=== PATIENT | male | born 1940 | race Caucasian/White ===

== ENCOUNTER 2017-12-23 12:03 | Emergency (ER) | payer MEDICARE, BC, SELFPAY ==
[2017-12-23 12:50] VITALS: BP 130/74; PULSE 76; RESP 18; TEMP 37; O2SAT 96; BMI 27.8
--- NOTE | 2017-12-23 12:56 | HMH.EDUTC ---
[facility] [place] Disposition Clinical Impression: Flu-like symptoms Disposition: Home, Self-Care Condition on Discharge: Good Instructions: Influenza, Sore Throat Additional Instructions: ? Start Tamiflu today if you are going to take it. Discussed risk and possible benefits. ? Lots of rest ? Increase Fluids water, Gatorade, powerade, pedialyte,if infant/toddler/child ? Alternate Tylenol and / or ibuprofen as discussed for fever, aches, chills x 24 hours without medication for symptoms ? Follow up IMMEDIATELY for new or worsening Symptoms OR no noticeable improvement over the next 48-72 hours, 911 for difficulty or breathing ? You or your child area contagious until no fever, aches, chills for 24 hours with medication for symptoms Prescriptions: Oseltamivir Phosphate [Tamiflu 75mg Capsule] 75 mg PO BID #10 cap Referrals: Aden Basilio MD [Primary Care Provider] - Time of Disposition: 13:00 Medical Decision Making - Medical Records Medical records reviewed: Yes: I reviewed the patient's medical records. Vital Signs: 12/23/17 12:50 Temperature 98.6 F Temperature Source Temporal Artery Scan Pulse Rate [Right] 76 Respiratory Rate 18 Blood Pressure [Right Arm] 130/74 Blood Pressure Mean [Right Arm] 92 Blood Pressure Source [Right Arm] Automatic Cuff Blood Pressure Position [Right Arm] Sitting 02 Sat by Pulse Oximetry 96 Oxygen Delivery Method Room Air - Ian Inquiry Pt receiving controlled substance: No Ian was queried for this patient: No - Reevaluation(s) Time: 12:58 Reevaluation #1: Patient having flu like symptoms, Patient flu test negative at this time however just tested positive for the flu Due to paitent age and current symptoms patient was placed on Tamiflu and treated for influenza [facility] HPI - General Stated complaint: body aches possible flu Mode of Arrival: Ambulatory Source of Information: Patient Limitations: No Limitations Description of Symptoms (Recalled from Triage Doc. by RN): STATES HAS FLU HEENT Symptoms (Recalled from RN notes): Yes Resp Symptoms (Recalled from RN notes): No Skin Symptoms (Recalled from RN notes): No MS Symptoms (Recalled from RN notes): No Functional Status (Recalled from RN notes): N - History of Present Illness Provider Complaint: Patient state that he thinks he has the flu States that yesterday he began to feel bad having fever and chills State that even his hair feels sore State that he has been having body aches, sore throat and nasal drainage States that his is sick too so they came in to get checked - Related Data Previous Rx's Medication Instructions Recorded Oseltamivir Phosphate [Tamiflu 75 mg PO BID #10 cap 12/23/17 75mg Capsule] Allergies Allergy/AdvReac Type Severity Reaction Status Date / Time morphine Allergy Verified 12/23/17 12:54 - Worker's Comp Is this a Worker's Comp case?: No H History I have reviewed the patient's past medical history: Yes Medical History: Reports:: Diabetes Mellitus Type 2 - *Social History Alcohol Intake: never - Psychiatric History Expresses thoughts of harming self/others: None Suicide Plan Description: No Plan ROS Obtained: Yes All systems reviewed & no additional complaints - Constitutional Constitutional: Reports body ache, Reports chills, Reports fever(s) - ENT Ears, Nose, Mouth, and Throat: Reports nasal congestion, Reports nasal discharge, Reports sore throat - Cardiovascular Cardiovascular: Denies chest pain - Respiratory Respiratory: Yes cough, No dyspnea, No wheezing Physical Exam - General General appearance: alert, in no apparent distress - Expanded ENT Exam Comment: Throat red, irritated no exudate - Respiratory Respiratory exam: Present: normal lung sounds bilaterally. Absent: respiratory distress - Cardiovascular Cardiovascular exam: Present: regular rate, normal rhythm. Absent: JVD - Abdominal Exam Abdominal exam: Present: sof
--- NOTE | 2017-12-23 12:59 | ED_ITS ---
[facility] [place] [place] Disposition Clinical Impression: Flu-like symptoms Disposition: Home, Self-Care Condition on Discharge: Good Instructions: Influenza, Sore Throat Additional Instructions: ? Start Tamiflu today if you are going to take it. Discussed risk and possible benefits. ? Lots of rest ? Increase Fluids water, Gatorade, powerade, pedialyte,if infant/toddler/child ? Alternate Tylenol and / or ibuprofen as discussed for fever, aches, chills x 24 hours without medication for symptoms ? Follow up IMMEDIATELY for new or worsening Symptoms OR no noticeable improvement over the next 48-72 hours, 911 for difficulty or breathing ? You or your child area contagious until no fever, aches, chills for 24 hours with medication for symptoms Prescriptions: Oseltamivir Phosphate [Tamiflu 75mg Capsule] 75 mg PO BID #10 cap Referrals: Aden Basilio MD [Primary Care Provider] - Time of Disposition: 13:00 Medical Decision Making - Medical Records Medical records reviewed: Yes: I reviewed the patient's medical records. Vital Signs: 12/23/17 12:50 Temperature 98.6 F Temperature Source Temporal Artery Scan Pulse Rate [Right] 76 Respiratory Rate 18 Blood Pressure [Right Arm] 130/74 Blood Pressure Mean [Right Arm] 92 Blood Pressure Source [Right Arm] Automatic Cuff Blood Pressure Position [Right Arm] Sitting 02 Sat by Pulse Oximetry 96 Oxygen Delivery Method Room Air - Ian Inquiry Pt receiving controlled substance: No Ian was queried for this patient: No - Reevaluation(s) Time: 12:58 Reevaluation #1: Patient having flu like symptoms, Patient flu test negative at this time however just tested positive for the flu Due to paitent age and current symptoms patient was placed on Tamiflu and treated for influenza [facility] [place] [place] HPI - General Stated complaint: body aches possible flu Mode of Arrival: Ambulatory Source of Information: Patient Limitations: No Limitations Description of Symptoms (Recalled from Triage Doc. by RN): STATES HAS FLU HEENT Symptoms (Recalled from RN notes): Yes Resp Symptoms (Recalled from RN notes): No Skin Symptoms (Recalled from RN notes): No MS Symptoms (Recalled from RN notes): No Functional Status (Recalled from RN notes): N - History of Present Illness Provider Complaint: Patient state that he thinks he has the flu States that yesterday he began to feel bad having fever and chills State that even his hair feels sore State that he has been having body aches, sore throat and nasal drainage States that his is sick too so they came in to get checked - Related Data Previous Rx's Medication Instructions Recorded Oseltamivir Phosphate [Tamiflu 75 mg PO BID #10 cap 12/23/17 75mg Capsule] Allergies Allergy/AdvReac Type Severity Reaction Status Date / Time morphine Allergy Verified 12/23/17 12:54 - Worker's Comp Is this a Worker's Comp case?: No [facility] History I have reviewed the patient's past medical history: Yes Medical History: Reports:: Diabetes Mellitus Type 2 - *Social History Alcohol Intake: never - Psychiatric History Expresses thoughts of harming self/others: None Suicide Plan Description: No Plan ROS Obtained: Yes All systems reviewed & no additional complaints - Constitutional Constitutional: Reports body ache, Reports chills, Reports fever(s) - ENT Ears,
[2017-12-23 13:11] LABS: UTC Influenza A Antigen Negative (Negative); UTC Influenza B Antigen Negative (Negative)
[2017-12-23 13:13] VITALS: BP 128/87; PULSE 88; RESP 18; TEMP 36.6
== END 2017-12-23 13:17 | disposition home or self-care (01) ==
PROVIDERS: Emergency Provider Nurse Practitioner; PCP Family Medicine
DX: J10.1 Influenza due to other identified influenza virus with other respiratory manifestations (principal)
CPT/HCPCS: 87804; 99202

== ENCOUNTER → 2018-05-28 14:37 | Outpatient (CLI) | payer MEDICARE, BC, SELFPAY ==
[2018-05-28 17:37] LABS: Blood Urea Nitrogen 16 mg/dL (7-18); Estimated Glomerular Filt Rate 73 ml/min (>60); GFR (African American) 88 ML/MIN (>60)
== END ==
PROVIDERS: PCP Family Medicine; Visit Provider Surgery
DX: Z01.818 Encounter for other preprocedural examination (principal)
CPT/HCPCS: 36415; 82565; 84520

== ENCOUNTER → 2018-06-03 09:08 | Outpatient (CLI) | payer MEDICARE, BC, SELFPAY ==
--- NOTE | 2018-06-03 09:11 | CT_ITS ---
CT abdomen pelvis w con INDICATION: History of major retroperitoneal bleed with drainage at [facility] Abdominal pain. Past history of pancreatitis left flank pain currently ITS.REASON: Left flank pain and swelling . Evaluate for hernia ORDERING PHYSICIAN: Mikhail Hall MD PATIENT AGE: 77 years COMPARISON: 06/18/2014 PROCEDURE: Oral Contrast: Redicat IV Contrast: 35 cc Isovue-370 utilized TECHNIQUE: Axial images are obtained following IV contrast and oral contrast. Thickened Axial, sagittal and coronal reformatted images are performed on CT workstation for review . All CT scans at the facility use one or more dose reduction, viz: automated exposure control; ma/kV adjustment per patient size (including targeted exams where dose is matched to indication; i.e. head); or iterative reconstruction technique. FINDINGS: Lung bases. Mild Cardio megaly Prominent coronary artery calcification. Aortic valve replacement. Sternotomy. Abdomen/pelvis. Liver. No focal lesions. No biliary ductal dilatation. Gallbladder surgically removed. Pancreas unremarkable. No mass. No ductal dilatation. Spleen satisfactory normal size. Adrenals unremarkable. Kidneys. No urinary tract calculi nor obstruction. Normal enhancement. Mild stranding about both kidneys most likely reflecting chronic changes. The ureters are generous but not significant dilated.. No calculi along the course of either ureter Pelvis. Diffuse urinary bladder wall thickening. Warrants correlation urinalysis. Current appearance Suspect for cystitis Moderate size prostate No free fluid in pelvis. GI TRACT Colonic diverticulosis. Most extensive diverticulosis seen at sigmoid colon. Note a thickened diverticulum at the distal sigmoid colon. This Seen on axial slice 107, sagittal 43. This could reflect a focus of diverticulitis. Clinical correlation required as There is little if any stranding however about this area to further raise concern ( regarding acute inflammation). This is fairly low at the pelvis... There is wall thickening throughout the sigmoid colon but this likely reflects chronic diverticular changes and muscular hypertrophy. Difficult to totally exclude any associated colitis. Small bowel normal caliber and unremarkable Stomach: question slight suggestion slightly thickened wall the distal antrum prepyloric.q axial slice 44-41. Aorta. Diffuse at this site calcification. This includes calcification origin of renal arteries and significant callus indication origin of SMA. However we continue see normal flow into the SMA and celiac artery. Also normal flow into SOPHIE Osseous. Multilevel degenerative changes.. Previous laminectomy and posterior fusion L 4/5 L3/4 with: donor other site likely from right iliac bone. Prominent stranding is seen posterior to the left psoas muscle. Sagittal view shows a long thin wispy area measuring over over 12 cm in seen diffusely posterior to the left psoas muscle.History from dr. Hall states that the patient has had a very large retroperitoneal hemorrhage that was drained at in the past. There are other minimal densities/findings in this region which are likely related to this old event.. 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 Infection in the past There reportedly are no new symptoms at the posterior left back/flank region per Dr. Hall. Actually the clinical concern regarding was asymmetricBulging of the abdominal wall to the left anterior iliac bone with this I would note there is some thinning and what appears to be a stress area of the abdominal the region where a a (spigelian hernia can developed between the anterolateral abdominal wall muscle groups However we do not see a matt hernia nor bulging of fat onl
== END ==
PROVIDERS: PCP Family Medicine; Visit Provider Surgery
DX: R10.9 Unspecified abdominal pain (principal)
CPT/HCPCS: 74177; Q9967

== ENCOUNTER → 2019-01-10 08:16 | Outpatient (POV) | payer MEDICARE, BC, SELFPAY | PROVIDERS: Visit Provider Nurse Practitioner Acute Care | DX: Z00.00 Encounter for general adult medical examination without abnormal findings (principal) ==

== ENCOUNTER → 2019-04-22 09:17 | Outpatient (CLI) | payer MEDICARE, SELFPAY ==
--- NOTE | 2019-04-22 09:53 | XR_ITS ---
XR KUB HISTORY: ITS.REASON: LLQ ABD PAIN ORDERING PHYSICIAN: Aden Basilio MD PATIENT AGE: 78 years COMPARISON: None FINDINGS: There is a nonspecific nonobstructive bowel gas pattern with gas-filled loops of small bowel which do not appear distended with a mild amount of retained colonic feces. There is been prior bony fusion at L3-L4 and L5. Prior CABG with multiple epicardial wires. IMPRESSION: Nonspecific bowel gas pattern, no acute finding
[2019-04-22 10:37] LABS: Basophils # 0.1 K/mm3 (0-0.2); Basophils % 0.8 % (0.1-2.0); Eosinophils # 0.2 K/mm3 (0.0-0.4); Eosinophils % 2.9 % (0.1-12.0); Lymphocytes % 29.5 % (10-50); Mean Corpuscular HGB Conc 32.5 g/dL (31.8-35.4); Mean Corpuscular Hemoglobin 30.8 pg (27.0-31.2); Mean Platelet Volume 7.9 fl (7.4-10.4); Monocytes # 0.6 K/mm3 (0.1-1.0); Monocytes % 8.3 % (1.7-9.3); Neutrophils # 3.9 K/mm3 (1.8-7.8); Neutrophils % 58.5 % (37.0-80.0); Platelet Count 229 K/mm3 (142-424); Red Blood Count 3.89 M/mm3 (4.60-6.20); Red Cell Distribution Width 12.8 % (11.5-17.5); White Blood Count 6.7 K/mm3 (4.8-10.8)
[2019-04-22 10:53] LABS: Creatinine,Urine Random 110 mg/dL (20-320)
[2019-04-22 11:28] LABS: Alanine Aminotransferase 47 U/L (12-78); Albumin Level 4.1 gm/dL (3.4-5.0); Albumin/Globulin Ratio 1.4 (1.1-1.8); Alkaline Phosphatase 57 U/L (46-116); Anion Gap 12.5 mEq/L (5-15); Aspartate Amino Transferase 34 U/L (15-37); Bilirubin,Total 1.1 mg/dL (0.2-1.0); Blood Urea Nitrogen 16 mg/dL (7-18); Calcium 8.9 mg/dL (8.5-10.1); Carbon Dioxide 28 mmol/L (21.0-32.0); Chloride 102 mmol/L (98-107); Chol/HDL Ratio 2.7 (1-3.5); Cholesterol 103 mg/dL (140-200); Creatinine,Serum 0.96 mg/dL (0.70-1.30); Estimated Glomerular Filt Rate 76 ml/min (>60); GFR (African American) 92 ML/MIN (>60); Globulin 2.9 gm/dl (1.3-3.2); Glucose 203 mg/dL (74-106); HDL Cholesterol 38 mg/dL (27-67); LDL Cholesterol 30 mg/dL (0-130); Potassium 4.5 mmoL/L (3.5-5.1); Sodium 138 mmol/L (136-145); Thyroid Stimulating Hormone 4.62 uIU/ml (0.358-3.740); Triglycerides 176 mg/dL (30-200); VLDL Cholesterol 35 mg/dL (0-40)
[2019-04-22 13:20] LABS: Hemoglobin A1C 8.3 % (0.0-7.0)
== END ==
PROVIDERS: PCP Family Medicine; Visit Provider Family Medicine
DX: E11.9 Type 2 diabetes mellitus without complications (principal); E78.00 Pure hypercholesterolemia, unspecified; R10.32 Left lower quadrant pain; Z86.2 Personal history of diseases of the blood and blood-forming organs and certain disorders involving the immune mechanism; Z79.84 Long term (current) use of oral hypoglycemic drugs
CPT/HCPCS: 36415; 74018; 80053; 80061; 82043; 82570; 83036; 84443; 85025

== ENCOUNTER → 2020-11-12 11:04 | Outpatient (POV) | payer MEDICARE, SELFPAY | PROVIDERS: Visit Provider Nurse Practitioner Family | DX: Z00.00 Encounter for general adult medical examination without abnormal findings (principal) ==

== ENCOUNTER → 2021-05-20 09:01 | Outpatient (POV) | payer MEDICARE, SELFPAY | PROVIDERS: Visit Provider Nurse Practitioner Family | DX: Z00.00 Encounter for general adult medical examination without abnormal findings (principal) ==

== ENCOUNTER 2022-02-20 22:26 | Emergency (ER) | payer MEDICARE, SELFPAY ==
[2022-02-20 22:28] VITALS: BP 154/78; PULSE 103; RESP 18; TEMP 37.1; O2SAT 95; BMI 27.0
[2022-02-20 23:32] LABS: Basophils # 0.1 K/mm3 (0-0.2); Basophils % 0.7 % (0.1-2.0); Eosinophils # 0.1 K/mm3 (0.0-0.4); Eosinophils % 0.6 % (0.1-12.0); Hematocrit 40.3 % (42.0-52.0); Hemoglobin 13.3 g/dL (14.1-18.0); Lymphocytes # 0.8 K/mm3 (0.7-4.5); Mean Corpuscular HGB Conc 32.9 g/dL (31.8-35.4); Mean Corpuscular Hemoglobin 33.1 pg (27.0-31.2); Mean Corpuscular Volume 100.6 fl (80-94); Mean Platelet Volume 8.5 fl (7.4-10.4); Monocytes # 0.6 K/mm3 (0.1-1.0); Monocytes % 3.7 % (1.7-9.3); Neutrophils # 14.4 K/mm3 (1.8-7.8); Platelet Count 292 K/mm3 (142-424); Red Cell Distribution Width 13.7 % (11.5-17.5)
--- NOTE | 2022-02-20 23:35 | PC.NURSE ---
PT AWARE OF NEED FOR URINE SAMPLE AND STOOL SAMPLE.
[2022-02-20 23:39] LABS: MANUAL DIFFERENTIAL MANUAL DIFFERENTIAL (MANUAL DIFF)
[2022-02-20 23:42] LABS: Alanine Aminotransferase 26 U/L (12-78); Albumin/Globulin Ratio 1.6 (1.1-1.8); Alkaline Phosphatase 78 U/L (38-126); Amylase 79 U/L (30-110); Anion Gap 16.2 mEq/L (5-15); Aspartate Amino Transferase 37 U/L (17-59); Bilirubin,Total 1.1 mg/dl (0.2-1.3); Blood Urea Nitrogen 20 mg/dl (9-20); Calcium 9.8 mg/dl (8.4-10.2); Carbon Dioxide 27 mmol/L (22.0-30.0); Chloride 99 mmol/L (98-107); Creatinine Clearance Estimated 75 mL/min (50-200); Estimated Glomerular Filt Rate 109 ml/min (>60); GFR (African American) 132 ML/MIN (>60); Globulin 3.2 g/dL (1.3-3.2); Glucose 222 mg/dl (74-100); Potassium 4.2 mmoL/L (3.5-5.1); Sodium 138 mmol/L (136-145); Total Protein,Serum 8.2 g/dl (6.3-8.2)
[2022-02-20 23:43] LABS: Lactic Acid 1.6 mmol/L (0.7-2.1); Lipase 64 U/L (23-300)
[2022-02-21] VITALS: BP 150/75; PULSE 97; O2SAT 93
[2022-02-21] LABS: Troponin I < 0.01 ng/ml (0.00-0.034)
--- NOTE | 2022-02-21 | CT_ITS ---
PROCEDURE INFORMATION: Exam: CT Abdomen And Pelvis With Contrast Exam date and time: 02/21/2022 12:06 AM Age: 81 years old Clinical indication: Nausea and vomiting; Additional info: Nvd TECHNIQUE: Imaging protocol: Computed tomography of the abdomen and pelvis with contrast. Radiation optimization: All CT scans at this facility use at least one of these dose optimization techniques: automated exposure control; mA and/or kV adjustment per patient size (includes targeted exams where dose is matched to clinical indication); or iterative reconstruction. Contrast material: ISOVUE; Contrast volume: 75 ml; Contrast route: IV; COMPARISON: ABDPELW CT abdomen pelvis w con 06/03/2018 10:05 AM FINDINGS: Lungs: Dependent atelectasis in the lung bases. Heart: Cardiomegaly. Liver: Normal. No mass. Gallbladder and bile ducts: Cholecystectomy. Pancreas: Normal. No ductal dilation. Spleen: Normal. No splenomegaly. Adrenal glands: Normal. No mass. Kidneys and ureters: Normal. No hydronephrosis. Stomach and bowel: Diverticulosis in the colon without diverticulitis. No colitis. No small bowel obstruction. Appendix: Normal appendix. Intraperitoneal space: Unremarkable. No free air. No significant fluid collection. Arteries: Severe arthrosclerotic calcifications at the origins of the celiac trunk and SMA. Lymph nodes: Unremarkable. No enlarged lymph nodes. Urinary bladder: Unremarkable as visualized. Reproductive: Unremarkable as visualized. Bones/joints: Multilevel degenerative changes in the lumbar spine. Previous laminectomy at L4. Soft tissues: Small bilateral inguinal hernias with fat. IMPRESSION: No acute findings in the abdomen pelvis. Nonemergent findings as above.
[2022-02-21 00:04] LABS: Procalcitonin 0.111 ng/mL (0.0-2.0)
[2022-02-21 00:16] LABS: Thyroid Stimulating Hormone 0.92 uIU/mL (0.465-4.68)
[2022-02-21 00:17] LABS: T4 (Thyroxine) 13.7 ug/dl (5.53-11.0)
[2022-02-21 00:36] LABS: Campylobacter Not Detected (NotDetected); Clostridium Difficile A/B, PCR Not Detected (NotDetected); Enteroaggregative E coli Not Detected (NotDetected); Enteropathogenic E coli Not Detected (NotDetected); Enterotoxigenic E coli Not Detected (NotDetected); Microscopic, Urine URINE MICROSCOPIC (MICROSCOPIC); Plesimonas Shigalloides, PCR Not Detected (NotDetected); Salmonella, PCR Not Detected (NotDetected); Vibrio Cholerae Not Detected (NotDetected); Vibrio, PCR Not Detected (NotDetected); Yersinia Entercolitica, PCR Not Detected (NotDetected)
[2022-02-21 00:37] LABS: Adenovirus F 40/41, stool Not Detected (NotDetected); Astrovirus Not Detected (NotDetected); Cryptosporidium Not Detected (NotDetected); Cyclospora Cayetanesis Not Detected (NotDetected); Entamoeba histolytica Not Detected (NotDetected); Giardia lamblia Not Detected (NotDetected); Rotavirus A Not Detected (NotDetected); Sapovirus Not Detected (NotDetected); Shiga-like toxin E coli Not Detected (NotDetected); Shigella Enterovasive E coli Not Detected (NotDetected)
[2022-02-21 00:39] LABS: Appearance,Urine CLEAR (Clear); Bilirubin,Urine Negative (Negative); Blood, Urine Negative (Negative); Color,Urine YELLOW (Yellow); Glucose,Urine (UA) Negative (Negative); Ketones,Urine 1+ (Negative); Leukocyte Esterase,Urine Negative (Negative); Nitrate,Urine Negative (Negative); Protein,Urine TRACE (Negative); Specific Gravity, Urine 1.025 (1.005-1.030); Urobilinogen,Urine 0.2 EU/dl (0.2)
[2022-02-21 00:47] LABS: Coronavirus 19, PCR Not Detected (NotDetected); Influenza A, PCR Not Detected (NotDetected); Influenza B, PCR Not Detected (NotDetected)
[2022-02-21 00:54] LABS: Bacteria,Urine Trace /lpf; WBC,Urine Occasional #/hpf (0-3)
--- NOTE | 2022-02-21 00:57 | HMH.EDNVD ---
ED Disposition Clinical Impression: Enteritis Disposition: Home, Self-Care Condition on Discharge: Good Instructions: DI for Nausea -- Adult Additional Instructions: fluids and call dr colon Referrals: Aden Colon MD [Primary Care Provider] - - Critical Care Critical Care Time: No Attestation: On 02/20/22, the high probability of a clinically significant, sudden or life threatening deterioration of the following system(s) required my full and direct attention, intervention and personal management. The time I documented below is in addition to time spent performing reported procedures but includes the following listed in this critical care notation. Medical Decision Making - Medical Records Medical records reviewed: Yes: I reviewed the patient's medical records. - Ian Inquiry Pt receiving controlled substance: No Vital Signs: 02/20/22 22:28 Temperature 98.8 F Temperature Source Oral Pulse Rate [Left Radial] 103 H Respiratory Rate 18 Blood Pressure [Right Arm] 154/78 H Blood Pressure Mean [Right Arm] 103 02 Sat by Pulse Oximetry 95 Oxygen Delivery Method Room Air - Lab Data Lab results reviewed: Yes: I reviewed the patient's lab results. Lab Results 02/20/22 23:10: WBC 16.0 H, RBC 4.00 L, Hgb 13.3 L, Hct 40.3 L, MCV 100.6 H, MCH 33.1 H, MCHC 32.9, RDW 13.7, Plt Count 292, MPV 8.5, Neut % (Auto) 90.0 H, Lymph % (Auto) 5.0 L, [place] % (Auto) 3.7, Eos % (Auto) 0.6, Baso % (Auto) 0.7, Neut # (Auto) 14.4 H, Lymph # (Auto) 0.8, [place] # (Auto) 0.6, Eos # (Auto) 0.1, Baso # (Auto) 0.1, Total Counted 100, Neutrophils % (Manual) 94 H, Lymphocytes % (Manual) 4 L, Monocytes % (Manual) 1 L, Basophils % (Manual) 1.0, Platelet Estimate Normal, Macrocytosis 1+, Stomatocytes 1+ 02/20/22 23:10: Sodium 138, Potassium 4.2, Chloride 99, Carbon Dioxide 27, Anion Gap 16.2 H, BUN 20, Creatinine 0.70, Estimated Creat Clear 75, Estimated GFR 109, Est GFR ( Amer) 132, Glucose 222 H, Calcium 9.8, Total Bilirubin 1.1, AST 37, ALT 26, Alkaline Phosphatase 78, Troponin I < 0.01, C-Reactive Protein 3.0, Total Protein 8.2, Albumin 5.0, Globulin 3.2, Albumin/Globulin Ratio 1.6, Amylase 79, TSH 0.92, Thyroxine (T4) 13.7 H 02/20/22 23:10: Lipase 64, Procalcitonin 0.111 02/20/22 23:10: Lactate 1.6 02/21/22 00:29: Urine Color Yellow, Urine Appearance Clear, Urine pH 6.0, Ur Specific [place] 1.025, Urine Protein Trace, Urine Glucose (UA) Negative, Urine Ketones 1+, Urine Blood Negative, Urine Nitrate Negative, Urine Bilirubin Negative, Urine Urobilinogen 0.2, Ur Leukocyte Esterase Negative, Urine WBC Occasional, Urine Bacteria Trace Result diagrams: 02/20/22 23:10 02/20/22 23:10 Orders (Tests/Meds): ED MEDICATIONS Generic Name Dose Route Start Last Admin Trade Name Freq PRN Reason Stop Dose Admin Sodium Chloride 1,000 mls @ 999 mls/hr 02/20/22 23:15 02/20/22 23:13 Sod Chlor 0.9% 1000ml Bag IV 02/21/22 00:15 999 mls/hr .Q1H1M NIELS Administration Discontinued Medications Generic Name Dose Route Start Last Admin Trade Name Freq PRN Reason Stop Dose Admin Iopamidol 75 ml 02/21/22 00:17 02/21/22 00:18 Iopamidol-370 (76%);100ml Bottle IV 02/21/22 00:18 75 ml ONCE ONE Administration Ondansetron HCl 4 mg 02/20/22 23:06 02/20/22 23:12 Ondansetron 4mg/2ml Vial IV 02/20/22 23:07 4 mg ONCE ONE Administration Sodium Chloride 10 ml 02/21/22 00:17 02/21/22 00:18 Sodium Chloride 0.9% 10ml Syr (Rad Only) IV 02/21/22 00:18 10 ml ONCE ONE Administration ORDERS Category Date Time Status Diarrhea 23 Panel, PCR Stat Lab 02/20/22 23:05 Received Rapid PCR Covid and Flu A/B Stat Lab 02/21/22 00:00 Received Troponin I Q3H Lab 02/21/22 02:15 Ordered Troponin I Q3H Lab 02/21/22 05:15 Ordered Blood Culture Stat Micro 02/20/22 23:30 Received - CT Data CT Scan: Abdomen, Pelvis Time Received: 01:[address] Reviewed: Yes: I have viewed the radiologist's interpretation Preliminary
[2022-02-21 00:58] LABS: Lymphocytes % 4 % (10-50); Macrocytosis 1+; Monocytes % 1 % (2-9); Neutrophils % 94 % (42-76); Platelet Estimate Normal; Total Cells Counted 100
[2022-02-21 00:59] LABS: Stomatocytes 1+
--- NOTE | 2022-02-21 01:16 | PC.NURSE ---
Phone number verified so that diarrhea panel results can be called
[2022-02-21 01:19] VITALS: BP 152/75; PULSE 97; O2SAT 92
[2022-02-21 01:27] VITALS: BP 146/75; PULSE 96; RESP 16; TEMP 37.1; O2SAT 100
[2022-02-21 02:53] LABS: Norovirus Detected (NotDetected)
== END 2022-02-21 01:29 | disposition home or self-care (01) ==
PROVIDERS: Emergency Provider Emergency Medicine; PCP Family Medicine
DX: E78.5 Hyperlipidemia, unspecified (principal); E11.9 Type 2 diabetes mellitus without complications; Z20.822 Contact with and (suspected) exposure to COVID-19; Z79.1 Long term (current) use of non-steroidal anti-inflammatories (NSAID); Z79.82 Long term (current) use of aspirin; Z79.84 Long term (current) use of oral hypoglycemic drugs; Z79.899 Other long term (current) drug therapy; Z88.5 Allergy status to narcotic agent; Z85.828 Personal history of other malignant neoplasm of skin
CPT/HCPCS: 74177; 80053; 81001; 82150; 83605; 83690; 84145; 84436; 84443; 84484; 85007; 85025; 86140; 87040; 87507; 96361; 96365; 96374; 96375; 99285; C9803; J2405; Q9967; U0003; U0005

== ENCOUNTER 2022-05-08 20:15 | Emergency (ER) | payer MEDICARE, SELFPAY ==
[2022-05-08] VITALS (9 sets, daily range): BP systolic 118–148; BP diastolic 69–81; PULSE 90–98; RESP 17; TEMP 37.1–37.9; O2SAT 93–96; BMI 26.2
[2022-05-08 20:36] LABS: POC Glucose,Bedside 182 (70-110)
--- NOTE | 2022-05-08 20:36 | ECG_ITS ---
APPROVED REPORT Exam: Resting ECG HR:96 bpm ECG Measurements Heart Rate 96 AXES WA 171 P 122 QRSd 100 QRS 66 QT 346 T 30 QTc 400 Conclusion SINUS RHYTHM MINIMAL ST DEPRESSION [0.025+ mV ST DEPRESSION] BORDERLINE ECG UNCONFIRMED REPORT Electronically signed by : Josr Zimmer MD 05/09/2022 17:00:10
--- NOTE | 2022-05-08 20:46 | CT_ITS ---
PROCEDURE INFORMATION: Exam: CT Head Without Contrast Exam date and time: 05/08/2022 9:03 PM Age: 81 years old Clinical indication: Pain; Headache; Additional info: Headache, nausea, on daily asa TECHNIQUE: Imaging protocol: Computed tomography of the head without contrast. Radiation optimization: All CT scans at this facility use at least one of these dose optimization techniques: automated exposure control; mA and/or kV adjustment per patient size (includes targeted exams where dose is matched to clinical indication); or iterative reconstruction. COMPARISON: No relevant prior studies available. FINDINGS: Brain: No acute intracranial bleed or focal cerebral edema. Moderate central and peripheral cerebral atrophy. Chronic deep white matter ischemic changes are noted within lateral periventricular white matter. Small old lacunar infarct versus prominent [place] space along the lateral aspect of the left basal ganglion. There are benign TORCH calcifications within the basal ganglia. Cerebral ventricles: There is moderate atrophy related global ventriculomegaly. No midline shift. Paranasal sinuses: Mild mucosal thickening along the floor of each maxillary antrum. Visualized sinuses are otherwise unremarkable. No fluid levels. Mastoid air cells: Visualized mastoid air cells are well aerated. Bones/joints: Unremarkable. No acute fracture. Soft tissues: Bilateral cataract surgery has been performed. There are benign scalp calcifications noted over the calvarium. Vasculature: Intracranial artery density is normal. IMPRESSION: 1. No acute intracranial bleed or focal cerebral edema. 2. Moderate central and peripheral cerebral atrophy with moderate atrophy related global ventriculomegaly and chronic deep white matter ischemic changes within lateral periventricular white matter. 3. Small old lacunar infarct versus prominent [place] space along the lateral aspect of the left basal ganglion. 4. Low level and likely chronic inflammatory changes of the maxillary sinuses. 5. Bilateral cataract surgery has been performed.
[2022-05-08 20:50] LABS: Basophils # 0.1 K/mm3 (0-0.2); Basophils % 1.5 % (0.1-2.0); Eosinophils % 0.7 % (0.1-12.0); Hematocrit 37.4 % (42.0-52.0); Hemoglobin 13.5 g/dL (14.1-18.0); Lymphocytes # 0.9 K/mm3 (0.7-4.5); Lymphocytes % 21.9 % (10-50); Mean Corpuscular HGB Conc 36.1 g/dL (31.8-35.4); Mean Corpuscular Hemoglobin 33.7 pg (27.0-31.2); Mean Corpuscular Volume 93.5 fl (80-94); Mean Platelet Volume 8.8 fl (7.4-10.4); Monocytes # 0.3 K/mm3 (0.1-1.0); Monocytes % 8.5 % (1.7-9.3); Neutrophils # 2.7 K/mm3 (1.8-7.8); Neutrophils % 67.5 % (37.0-80.0); Platelet Count 187 K/mm3 (142-424); Red Cell Distribution Width 13.8 % (11.5-17.5); White Blood Count 4.1 K/mm3 (4.8-10.8)
--- NOTE | 2022-05-08 20:54 | PC.NURSE ---
Lab called to request new green top blood tube d/t hemolyzation. Re-collected and submitted
--- NOTE | 2022-05-08 21:06 | PC.NURSE ---
Pt to xray at this time
[2022-05-08 21:09] LABS: Coronavirus 19, PCR Not Detected (NotDetected); Influenza A, PCR Not Detected (NotDetected); Influenza B, PCR Not Detected (NotDetected)
--- NOTE | 2022-05-08 21:13 | PC.NURSE ---
Pt back from RAD
[2022-05-08 21:18] LABS: Alanine Aminotransferase 34 U/L (12-78); Albumin Level 4.4 g/dl (3.5-5.0); Alkaline Phosphatase 60 U/L (38-126); Amylase 51 U/L (30-110); Anion Gap 11.8 mEq/L (5-15); Aspartate Amino Transferase 53 U/L (17-59); Bilirubin,Indirect 1.1 mg/dL (0.0-0.9); Bilirubin,Total 1.1 mg/dl (0.2-1.3); Bilirubin,Unconjugated 1.1 mg/dL (0.0-1.1); Blood Urea Nitrogen 21 mg/dl (9-20); Calcium 9.8 mg/dl (8.4-10.2); Carbon Dioxide 28 mmol/L (22.0-30.0); Chloride 99 mmol/L (98-107); Creatinine Clearance Estimated 72 mL/min (50-200); Estimated Glomerular Filt Rate 81 ml/min (>60); GFR (African American) 98 ML/MIN (>60); Glucose 179 mg/dl (74-100); Lipase 24 U/L (23-300); Potassium 3.8 mmoL/L (3.5-5.1); Sodium 135 mmol/L (136-145); Total Protein,Serum 7.4 g/dl (6.3-8.2)
[2022-05-08 21:24] LABS: Erythrocyte Sedimentation Rate 28 mm/hr (0-20)
[2022-05-08 21:34] LABS: Troponin I < 0.01 ng/ml (0.00-0.034)
[2022-05-08 21:53] LABS: Microscopic, Urine URINE MICROSCOPIC (MICROSCOPIC)
[2022-05-08 21:55] LABS: Appearance,Urine SL CLOUDY (Clear); Blood, Urine TRACE-L (Negative); Color,Urine DK YELLOW (Yellow); Glucose,Urine (UA) Negative (Negative); Ketones,Urine Negative (Negative); Leukocyte Esterase,Urine Negative (Negative); Nitrate,Urine Negative (Negative); Protein,Urine TRACE (Negative); Specific Gravity, Urine 1.025 (1.005-1.030)
[2022-05-08 22:09] LABS: Bilirubin,Urine Negative (Negative)
--- NOTE | 2022-05-08 22:48 | HMH.EDWEAK ---
ED Disposition Clinical Impression: Weakness Disposition: Home, Self-Care Condition on Discharge: Good Instructions: DI for Muscle Weakness Additional Instructions: fluids and call pcp in am Referrals: Aden Basilio MD [Primary Care Provider] - - Critical Care Critical Care Time: No Attestation: On 05/08/22, the high probability of a clinically significant, sudden or life threatening deterioration of the following system(s) required my full and direct attention, intervention and personal management. The time I documented below is in addition to time spent performing reported procedures but includes the following listed in this critical care notation. Medical Decision Making - Medical Records Medical records reviewed: Yes: I reviewed the patient's medical records. - Ian Inquiry Pt receiving controlled substance: No Vital Signs: 05/08/22 20:17 05/08/22 20:38 05/08/22 21:00 Temperature 100.3 F H Temperature Source Oral Pulse Rate 96 H 95 H Pulse Rate [Left Radial] 98 H Respiratory Rate 17 Blood Pressure 146/81 H 148/76 H Blood Pressure [Left Arm] 146/81 H Blood Pressure Mean [Left Arm] 102 02 Sat by Pulse Oximetry 94 L 94 L 95 Oxygen Delivery Method Room Air Room Air Room Air 05/08/22 21:33 05/08/22 21:58 05/08/22 22:00 Temperature Temperature Source Pulse Rate 94 H 96 H 95 H Pulse Rate [Left Radial] Respiratory Rate Blood Pressure 138/76 118/70 131/70 Blood Pressure [Left Arm] Blood Pressure Mean [Left Arm] 02 Sat by Pulse Oximetry 93 L 95 94 L Oxygen Delivery Method Room Air Room Air Room Air 05/08/22 22:30 05/08/22 23:00 05/08/22 23:15 Temperature 98.8 F Temperature Source Oral Pulse Rate 92 H 92 H 90 Pulse Rate [Left Radial] Respiratory Rate Blood Pressure 135/77 134/69 134/69 Blood Pressure [Left Arm] Blood Pressure Mean [Left Arm] 02 Sat by Pulse Oximetry 95 95 96 Oxygen Delivery Method Room Air Room Air - Lab Data Lab results reviewed: Yes: I reviewed the patient's lab results. Lab Results 05/08/22 20:30: POC Glucose 182 H 05/08/22 20:32: WBC 4.1 L, RBC 4.00 L, Hgb 13.5 L, Hct 37.4 L, MCV 93.5, MCH 33.7 H, MCHC 36.1 H, RDW 13.8, Plt Count 187, MPV 8.8, Neut % (Auto) 67.5, Lymph % (Auto) 21.9, [place] % (Auto) 8.5, Eos % (Auto) 0.7, Baso % (Auto) 1.5, Neut # (Auto) 2.7, Lymph # (Auto) 0.9, [place] # (Auto) 0.3, Eos # (Auto) 0.0, Baso # (Auto) 0.1, ESR 28 H 05/08/22 20:32: Sodium 135 L, Potassium 3.8, Chloride 99, Carbon Dioxide 28, Anion Gap 11.8, BUN 21 H, Creatinine 0.90, Estimated Creat Clear 72, Estimated GFR 81, Est GFR ( Amer) 98, Glucose 179 H, Calcium 9.8, Total Bilirubin 1.1, Direct Bilirubin 0.0, Conjugated Bilirubin 0.0, Indirect Bilirubin 1.1 H, Unconjugated Bilirubin 1.1, AST 53, ALT 34, Alkaline Phosphatase 60, Troponin I < 0.01, C-Reactive Protein 24.0 H, Total Protein 7.4, Albumin 4.4, Amylase 51, Lipase 24 05/08/22 20:32: Lactate 2.0 05/08/22 21:02: SARS-CoV-2 (PCR) Not detected, Influenza A Untype (PCR) Not detected, Influenza Type B (PCR) Not detected 05/08/22 21:02: TSH 0.56, Thyroxine (T4) 8.7 05/08/22 21:49: Urine Color Dk yellow, Urine Appearance Sl cloudy, Urine pH 6.0, Ur Specific [place] 1.025, Urine Protein Trace, Urine Glucose (UA) Negative, Urine Ketones Negative, Urine Blood Trace-l, Urine Nitrate Negative, Urine Bilirubin Negative, Urine Urobilinogen 2.0, Ur Leukocyte Esterase Negative, Urine RBC None, Urine WBC None, Ur Squamous Epith Cells None, Urine Bacteria None 05/09/22 00:10: Troponin I 0.01 Result diagrams: 05/08/22 20:32 05/08/22 20:32 Orders (Tests/Meds): ED MEDICATIONS Generic Name Dose Route Start Last Admin Trade Name Freq PRN Reason Stop Dose Admin Sodium Chloride 1,000 mls @ 999 mls/hr 05/08/22 20:45 05/08/22 20:45 Sod Chlor 0.9% 1000ml Bag IV 05/08/22 21:45 999 mls/hr .Q1H1M NIELS Administration Sodium Chloride 1,000 mls @ 999 mls/hr 05/08/22 23:00 05/08/22 22:
--- NOTE | 2022-05-08 23:20 | XR_ITS ---
PROCEDURE INFORMATION: Exam: XR Chest Exam date and time: 05/08/2022 11:25 PM Age: 81 years old Clinical indication: Fever; Additional info: Fever, weak TECHNIQUE: Imaging protocol: Radiologic exam of the chest. Views: 2 views. COMPARISON: CT ABDOMEN PELVIS W CON 02/21/2022 12:06 AM FINDINGS: Lungs: Unremarkable. No consolidation. Pleural spaces: Unremarkable. No pleural effusion. No pneumothorax. Heart/Mediastinum: Median sternotomy and aortic valve replacement noted. Borderline cardiomegaly. Atheromatous calcification of the thoracic aorta is noted. Bones/joints: Unremarkable. IMPRESSION: No acute intrathoracic disease.
[2022-05-08 23:58] LABS: T4 (Thyroxine) 8.7 ug/dl (5.53-11.0)
[2022-05-09 00:12] LABS: Thyroid Stimulating Hormone 0.56 uIU/mL (0.465-4.68)
[2022-05-09 00:54] LABS: Troponin I 0.01 ng/ml (0.00-0.034)
[2022-05-09 01:02] VITALS: BP 136/74; PULSE 65; RESP 19; TEMP 36.8; O2SAT 99
== END 2022-05-09 01:08 | disposition home or self-care (01) ==
PROVIDERS: Emergency Provider Emergency Medicine; PCP Family Medicine
DX: R53.1 Weakness (principal); Z79.899 Other long term (current) drug therapy; Z79.82 Long term (current) use of aspirin; Z88.5 Allergy status to narcotic agent; E78.5 Hyperlipidemia, unspecified; E11.9 Type 2 diabetes mellitus without complications; I10 Essential (primary) hypertension; Z85.828 Personal history of other malignant neoplasm of skin
CPT/HCPCS: 36415; 70450; 71046; 80048; 80076; 81001; 82150; 82962; 83605; 83690; 84436; 84443; 84484; 85025; 85651; 86140; 87040; 93005; 96365; 96366; 96375; 99284; C9803; J2405; U0003; U0005

== ENCOUNTER → 2022-05-15 08:28 | Outpatient (CLI) | payer MEDICARE, SELFPAY ==
--- NOTE | 2022-05-15 | CA_ITS ---
FINAL REPORT TECHNIQUE: Color Doppler, duplex Doppler and epps scale sonography of the bilateral neck vasculature was performed. Velocities were measured in the carotid arteries. Stenosis evaluation based on velocity criteria. CLINICAL HISTORY: HTN, HLD, AVR, DM, Dizziness, stroke FINDINGS: The peak systolic velocity of the right common carotid artery is 46 cm/sec and internal carotid artery 101 cm/sec. the diastolic velocity in the internal carotid artery is 36 cm/sec. Visually, a moderate amount of plaque is seen. These findings are consistent with less than 50% stenosis. The external carotid artery is patent. The right vertebral artery is patent with antegrade flow. ICA/CCA ratio: 4.65 The peak systolic velocity of the left common carotid artery is 95 cm/sec and internal carotid artery 80 cm/sec. the diastolic velocity in the internal carotid artery is 26 cm/sec. Visually, a moderate amount of plaque is seen. These findings are consistent with less than 50% stenosis. The external carotid artery is patent. The left vertebral artery is patent with antegrade flow. ICA/CCA ratio: 2.03 IMPRESSION: Less than 50% bilateral carotid stenosis. Moderate plaque. Bilateral patent vertebral arteries. If indicated, CTA or MRA could further evaluate. Reviewed, Interpreted and Dictated by Mikhail Hunt III, MD Transcribed by Usman Santiago Authenticated and [facility]
== END ==
PROVIDERS: PCP Family Medicine; Visit Provider Family Medicine
DX: R42 Dizziness and giddiness (principal); Z86.73 Personal history of transient ischemic attack (TIA), and cerebral infarction without residual deficits
CPT/HCPCS: 93880

== ENCOUNTER 2024-03-08 13:20 | Outpatient (CLI) | payer MEDICARE, SELFPAY ==
--- NOTE | 2024-03-08 13:25 | CA_ITS ---
FINAL REPORT CLINICAL HISTORY: Dizziness, syncope, hx of multiple TIA's, DM, hx AV replacement. FINDINGS: RIGHT CAROTID: CCA PSV -25 cm/sec ICA PSV -248 cm/sec ICA/CCA PSV ratio -9.93. Comments: Moderate plaque disease is noted. Stenosis is considered greater than 70%. LEFT CAROTID: CCA PSV -66. cm/sec ICA PSV -162. cm/sec ICA/CCA PSV ratio -2.47. Comments: Moderate plaque disease is noted. Narrowing is classified as less than 50%. Antegrade flow is seen within the vertebral arteries. IMPRESSION: 1. Right ICA stenosis considered greater than 70%. Recommend CTA correlation 2. Left carotid stenosis classified less than 50% Authenticated and [facility]
== END 2024-03-08 23:59 | disposition home or self-care (01) ==
LOC: RT 13:21
PROVIDERS: PCP Family Medicine; Visit Provider Family Medicine
DX: I65.23 Occlusion and stenosis of bilateral carotid arteries (principal); R42 Dizziness and giddiness; R41.0 Disorientation, unspecified
CPT/HCPCS: 93880

== ENCOUNTER 2024-03-18 11:05 | Outpatient (CLI) | payer MEDICARE, SELFPAY ==
--- NOTE | 2024-03-18 11:13 | CT_ITS ---
FINAL REPORT TECHNIQUE: Thin section axial CT with IV contrast supplemented with multiplanar reconstruction under CT angiogram protocol. This study was performed with techniques to keep radiation doses as low as reasonably achievable (ALARA). Individualized dose reduction techniques using automated exposure control or adjustment of mA and/or kV according to the patient''s size were employed. NASCET criteria was utilized during interpretation. CLINICAL HISTORY: CAROTID STENOSIS, BILATERAL COMPARISON: Carotid duplex ultrasound dated 03/08/2024 FINDINGS: Heavily calcified plaque at the bilateral bifurcations makes evaluation more difficult. Aortic arch: Arch shows no significant narrowing. Great vessel origins are widely patent. Right carotid: The proximal and mid common carotid artery are unremarkable. There is heavily calcified plaque at the bifurcation. There is 80 to 90% stenosis of the distal common carotid artery just proximal to the bifurcation with approximately 50% stenosis of the proximal internal carotid artery. Left carotid: The proximal and mid common carotid artery are unremarkable. There is heavily calcified plaque at the bifurcation with approximately 70% stenosis at the proximal carotid bulb. More distal the more distal internal carotid artery is patent without stenosis. Vertebral: Left vertebral artery is dominant. No significant stenosis is present. There is mucosal thickening in multiple sinuses. IMPRESSION: 80 to 90% stenosis of the distal right common carotid artery just proximal to the bifurcation with 50% stenosis of the right proximal internal carotid artery. 70% stenosis of the proximal left carotid bulb with out stenosis more distally in the internal carotid artery. Reviewed, Interpreted and Dictated by Mikhail Hunt III, MD Transcribed by Nicole Gilbert Authenticated and . [facility]
[2024-03-18 11:53] LABS: Blood Urea Nitrogen 14 mg/dl (9-20); Estimated Glomerular Filt Rate 81 ml/min (>60); GFR (African American) 98 ML/MIN (>60)
[2024-03-18] MEDS: 0.9 % SODIUM CHLORIDE 50 ML VIAL IV (12:34)
[2024-03-18] MEDS: SODIUM CHLORIDE 0.9% 10ML SYR (RAD ONLY) 10 ML IV (12:35)
[2024-03-18] MEDS: IOPAMIDOL-370 (76%);100ML BOTTLE 100 ML IV (12:35)
== END 2024-03-18 23:59 | disposition home or self-care (01) ==
LOC: RAD 11:07
PROVIDERS: PCP Family Medicine; Visit Provider Family Medicine
DX: I65.23 Occlusion and stenosis of bilateral carotid arteries (principal)
CPT/HCPCS: 36415; 70498; 82565; 84520; Q9967

== ENCOUNTER 2024-07-08 15:00 | Outpatient (RCR) | payer MEDICARE, SELFPAY | END 2024-07-08 15:05 | disposition home or self-care (01) | LOC: PT 15:00 | PROVIDERS: Visit Provider Surgery | DX: M62.81 Muscle weakness (generalized) (principal) | CPT/HCPCS: 97110; 97112; 97163; 97164; 97530 ==